=== PATIENT | male | born 1945 | race Caucasian/White ===

== ENCOUNTER 2017-08-30 12:41 | Outpatient (CLI) | payer MEDICARE, OTHER ==
[2017-08-30] MEDS ORDERED: SALINE FLUSH 10 ML DISP.SYRIN IVF ONE (13:00)
[2017-08-30] MEDS ORDERED: NORMAL SALINE 500 ML IV.SOLN IV ONE (13:00)
[2017-08-30 13:02] LABS: BASOPHILS % 0.5 (0.0-1.5); EOSINOPHILS % 0.4 % (0.0-6.8); MEAN CORPUSCULAR HEMOGLOBIN 30.4 pg (28.0-34.0); MEAN CORPUSCULAR VOLUME 87.8 fl (80.0-100.0); MONOCYTES % 2.4 % (0.0-11.0); NEUTROPHILS # 1.9 # k/uL (1.4-7.7)
[2017-08-30 13:35] LABS: eGFR (African) > 60; eGFR (Non-African) > 60
== END 2017-08-30 12:42 ==
LOC: INF 12:41
PROVIDERS: ATTEND Family Medicine
DX: J18.9 Pneumonia, unspecified organism (principal); E86.0 Dehydration; R53.83 Other fatigue
CPT/HCPCS: 80053; 85025; J7060; 96360; 96361; S1016